=== PATIENT | male | born 1945 | race Caucasian/White ===

== ENCOUNTER → 2016-09-15 | Outpatient (CLI) | payer MEDICARE, OTHER ==
[~2016-09-15] MED LIST: NICODERM C1 PATCH .1 TD; NORVASC10 MG PO
--- NOTE | ~2016-09-15 | XA57 ---
[facility] A Service of [facility] RADIOLOGY TEXT RESULTS PATIENT: DENA FUENTES LOCATION: [facility] : 47 UNIT #: [id number] AGE: [address]: GEOVANI ZAIDI MD SEX: M ORDER DR: [id number] [address] [place], [place] [address] [id number] O MR#: [id number] Acc #: [id number] NAME: DENA FUENTES : 1945 SEX: M STUDY DATE/TIME: 09/15/2016 10:07 UNIT: [facility] ROOM: STUDY DESCRIPTION: XA BX Perc Muscle Attending Physician: Geovani Zaidi M.D. Ordering Physician: Geovani Zaidi M.D. Primary Care Physician: Curry Solomon M.D. MEDICAL IMAGING REPORT This report is preliminary unless electronic signature is present EXAM Ultrasound-guided thigh mass biopsy. DATE OF EXAM 09/15/2016 INDICATIONS 71-year-old male with history of a hypermetabolic mass in his posterior right thigh suspicious for malignancy. Biopsy was requested. The risks, benefits and alternatives of the procedure were discussed with the patient, and informed consent was obtained. In the procedure room, a time-out was performed confirming correct patient and procedure. All elements of maximum sterile-barrier technique utilized according to guidelines appropriate for the procedure. TECHNIQUE/FINDINGS Ultrasound of the posterior aspect of the right thigh was performed. The mass was identified. The overlying skin was prepped and draped in the usual sterile fashion. 1% lidocaine was utilized to anesthetize the skin and underlying subcutaneous tissues. Next under ultrasound guidance, 2 core biopsies of the mass were obtained with an 18-gauge needle and sample sent to Pathology. The patient tolerated the procedure well without immediate complications. IMPRESSION Technically successful ultrasound-guided right thigh mass biopsy. Dictated by... Yon Marcial M.D. THIS IS AN ELECTRONICALLY VERIFIED REPORT [facility] A Service of [facility] RADIOLOGY TEXT RESULTS PATIENT: DENA FUENTES LOCATION: [facility] #: [id number] : 47 UNIT #: [id number] AGE: [address]: GEOVANI ZAIDI MD SEX: M ORDER DR: Yon Marcial M.D. at 09/16/2016 8:58 AM ALEXANDRA/jacey TD: 09/15/2016 17:33 JOB #: [id number] MEDICAL IMAGING REPORT Page 1 of 1 COPY
[2016-09-15 08:20] LABS: HEMATOCRIT 39.7 % (38.0-50.0); HEMOGLOBIN 12.9 gm/dL (13.0-16.0); MEAN CELL VOLUME 89.1 FL (83-96); MEAN CORPUSCULAR HEMOGLOBIN 28.9 PG (28-34); MEAN CORPUSCULAR HGB CONC 32.5 g/dL (30-36); MEAN PLATELET VOLUME 8.1 FL (6.5-11.5); RED BLOOD COUNT 4.46 X10e (3.90-5.60); RED CELL DISTRIBUTION WIDTH 14.1 % (11.0-15.5); WHITE BLOOD COUNT 9.6 X10e3 (4.0-10.5)
[2016-09-15 08:31] LABS: PARTIAL THROMBOPLASTIN TIME 28.9 SECONDS (23.5-31.3); PROTHROMBIN TIME (PATIENT) 10.4 SECONDS (9.6-11.5)
== END | disposition home or self-care (01) ==
LOC: CIVR 07:28
PROVIDERS: Internal Medicine Hematology & Oncology
DX: D49.2 Neoplasm of unspecified behavior of bone, soft tissue, and skin (principal); C34.10 Malignant neoplasm of upper lobe, unspecified bronchus or lung; C79.31 Secondary malignant neoplasm of brain
CPT/HCPCS: 76942; 85027; 85610; 85730; 88305; 88341; 88342